=== PATIENT | female | born 1965 | race Caucasian/White ===

== ENCOUNTER 2018-01-01 09:21 | Emergency (ER) | payer OTHER ==
[2018-01-01 09:44] VITALS: BP 140/84
[2018-01-01] MEDS ORDERED: Ketorolac INJ* 60 MG/2 ML VIAL IM ONE (10:33)
--- NOTE | 2018-01-01 10:44 | UC ---
Back Pain HPI - HPI Summary HPI Summary: pt is here with acute back pain that started this morning. pt reports that she woke with her back felling tweaky this morning but was able to start her day as normal, including walking her dog. it was not until she was getting out of her car when her foot hit the ground her back spasmed severely. pain is located in the low back and radiates down the bl legs no numbness, weakness or tingling. no bowel or bladder changes, no saddle anesthesia.pt has had similar back spasms in the past for which she has been sucessfully tx with flexeril and 800mg of ibuprofen tid. 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 Hx Last Menstrual Period: MAY 2014 ?: No Onset/Duration: Sudden Onset Timing: Constant, Lasting Hours Severity Initially: Severe Severity Currently: Severe Pain Intensity: 8 - 10 with any movement Back Pain: Is Discrete @ Aggravating Factor(s): Movement Alleviating Factor(s): Nothing Associated Signs And Symptoms: Negative: Swelling, Redness, Bruising, Fever, Weakness, Numbness, Tingling, Abdominal Pain, Flank Pain, Bladder Incontinence, Bowel Incontinence, Weight Loss - Allergies/Home Medications Allergies/Adverse Reactions: Allergies Allergy/AdvReac Type Severity Reaction Status Date / Time No Known Allergies Allergy Verified 01/01/18 09:40 Home Medications: Home Medications Ibuprofen TAB* [Motrin TAB* 600 MG] 600 mg PO Q6H PRN 01/01/18 [History Confirmed 01/01/18] Lisinopril TAB* [Prinivil TAB*] 10 mg PO DAILY 01/01/18 [History Confirmed 01/01] Simvastatin 10 mg PO DAILY 01/01/18 [History Confirmed 01/01/18] PMH/Surg Hx/FS Hx/Imm Hx Previously Healthy: Yes Endocrine History: Dyslipidemia Cardiovascular History: Hypertension - Surgical History Surgical History: None Surgery Procedure, Year, and Place: NONE - Family History Known Family History: Positive: Hypertension Negative: Cardiac Disease, Diabetes - Social History Occupation: Employed Full-time Lives: With Family Alcohol Use: Occasionally Substance Use Type: None Smoking Status (MU): Never Smoked Tobacco - Immunization History Most Recent Influenza Vaccination: FALL 2013 Most Recent Tetanus Shot: UTD Review of Systems Constitutional: Negative Skin: Negative Gastrointestinal: Negative Genitourinary: Negative Motor: Other - difficukty walking d/t pain Neurovascular: Negative Musculoskeletal: Myalgia Neurological: Negative Psychological: Negative All Other Systems Reviewed And Are Negative: Yes Physical Exam Triage Information Reviewed: Yes Appearance: Well-Appearing, Well-Nourished, Pain Distress - mod to severe Vital Signs: Initial Vital Signs Temp 99 F 01/01/18 09:38 Pulse 67 01/01/18 09:38 Resp 15 01/01/18 09:38 BP 140/84 01/01/18 09:38 Pulse Ox 100 01/01/18 09:38 Vital Signs Reviewed: Yes Eyes: Positive: Conjunctiva Clear. Negative: Discharge ENT: Positive: Hearing grossly normal. Negative: Muffled voice, Hoarse voice Neck: Positive: Supple, Nontender Respiratory: Positive: Lungs clear, Normal breath sounds, No respiratory distress, No accessory muscle use Cardiovascular: Positive: RRR, No Murmur Abdomen Description: Positive: Nontender, Soft. Negative: CVA Tenderness (R), CVA Tenderness (L), Distended Musculoskeletal: Positive: No Edema, ROM Limited @ - d/t pain, Other: - normal inspection, positive paraspinal spasm, tender across across sacrum Neurological: Positive: Alert, Muscle Tone Normal, Other: - strength, sensation , reflexes intact bl Psychological: Positive: Age Appropriate Behavior Skin Exam: Normal Back Pain Course/Dx - Course Course Of Treatment: pt given toradol injection with significant benefit per pt - 40% improvement - Differential Dx/Diagnosis Provider Diagnoses: low back strain, sciatica Discharge - Sign-Out/Discharge Documenting (check all that apply): Discharge - Discharge Plan Condition: Stable Disposition: HOME Prescriptions: Cyclobenzaprine TAB* [Flexeril TAB*] 10 mg PO TID PRN #30 tab PRN Reason: Pain Ibuprofen TAB* [Motrin TAB* 800 MG] 800 mg PO Q6H PRN #20 tab PRN Reason: Pain Patient Education Materials: Sciatica (ED), Low Back Strain (ED) Referrals: Marija Mcfarlane MD [Primary Care Provider] - 1 Week Additional Instructions: BECAUSE THE INJECTED ANTIINFLAMMATORY MEDICATION WE GAVE YOU IS VERY STRONG, DO NOT TAKE ANY ANTIINFLAMMATORIES UNTIL AFTER 6 OR 7 O'CLOCK TONIGHT. ANTI-INFLAMMATORY MEDICATION: You have received a prescription for an antiinflammatory agent. This is an excellent, safe drug for pain control. In addition, it has potent antiinflammatory effects which are beneficial, especially in the treatment of injuries, arthritis, or tendonitis. It's best to take this medicine with food. Persons with ulcer disease or allergy to aspirin should notify their physician of this before taking this drug. Take the medication exactly as prescribed. Don't take additional doses unless instructed to do so by your doctor. If you develop wheezing, shortness of breath, hives, faintness, stomach pain, vomiting, or dark black stools, return for re-evaluation at once. MUSCLE RELAXERS: Muscle relaxing medications are usually prescribed for acute muscle spasm or injury to the neck and back. They are often combined with antiinflammatory pain medication for increased relief. You may stop the muscle relaxer when the pain and stiffness have improved. Start the medication again if spasms recur. Muscle relaxers may cause drowsiness, especially with the first dose. Do not operate machinery or drive while under the effects of the medication. Most muscle relaxers last up to 24 hours. Do not combine the medication with alcohol. WE HAVE GIVEN YOU A REFERRAL TO PHYSICAL THERAPY YOU WOULD LIKELY BENEFIT FROM OSTEOPATHIC MANIPULATION. WE RECOMMEND THAT YOU FIND AN OSTEOPATHIC PHYSICIAN IN YOUR AREA WHO DOES LYMPHATIC, MYOFACIAL AND VISCERAL WORK. - Billing Disposition and Condition Condition: STABLE Disposition: HOME
== END 2018-01-01 11:18 | disposition home or self-care (01) ==
LOC: UCCORT 09:21
DX: S39.012A Strain of muscle, fascia and tendon of lower back, initial encounter (principal); X58.XXXA Exposure to other specified factors, initial encounter; Y93.9 Activity, unspecified; Y92.9 Unspecified place or not applicable; M54.42 Lumbago with sciatica, left side; M54.41 Lumbago with sciatica, right side; M62.830 Muscle spasm of back
CPT/HCPCS: 96372; 99212; G0463; J1885